=== PATIENT | female | born 1965 | race Hispanic/Latino ===

== ENCOUNTER 2016-04-20 14:22 | Emergency (ER) | payer SELFPAY ==
[2016-04-20 14:24] VITALS: BP 156/91; PULSE 94; RESP 24; O2SAT 100
--- NOTE | 2016-04-20 15:10 | ED.REPORT ---
HPI-Chest Pain 40 and Over Date of Service Apr 20, 2016 ED Provider: Dl Norman MD A 51 year old female with a history of pre-diabetes and hypertension presents to the ED with waxing and waning epigastric chest pain onset 1200 today. The pain was squeezing in nature, lasting until she arrived in the ED. The patient also reports dizziness, shortness of breath, and nausea. She had the flu one month ago but her associated symptoms have since resolved. Nursing Notes Stated Complaint: CHEST PAIN Chief Complaint: Chest Pain Nursing Notes Reviewed: Yes Allergies: Coded Allergies: aspirin (Verified Allergy, Mild, RASH, 04/20/16) General Time Seen by MD: 15:08 Chief Complaint Chest pain Hx Obtained From: Patient Arrived By: Walk-in Sudden in Onset?: Yes Onset Occurred: 5 - 8 hours ago Symptom Duration: Since onset Location: : Epigastric Quality: Painful Severity: Current: Moderate Severity: Maximum: Moderate Associated with: Reports: Dizziness, Nausea, Shortness of Breath, Denies: Fever Context Related History: Reports: Hypertension Recent Healthcare: No recent doctor visit Risk Factors HEART Score HEART for MACE: Mod index of susp (1), Normal ECG (0), Age 45 - 65 (1), 1-2 CAD risk factors (1), < or = to NL troponin (0) HEART for MACE Score: 0-3 (low risk 0.9%-1.7%) Past Medical History Past Medical History Hypertension Pre-Diabetes Past Surgical History None reported Family History Father of heart attack at age 70 Brother of heart attack age 52 Smoking History Never Smoker Social History Other Social History: Good social support, Ambulatory Status Independent Review of Systems Constitutional: Denies: Fever Respiratory: Reports: Shortness of breath, Denies: Non-productive cough GI: Reports: Nausea, Denies: Vomiting Neurologic: Reports: Dizziness Complete sys rev & neg: except as marked. Physical Exam Initial Vital Signs Vital Signs (First) Date Time Temp Pulse Resp B/P Pulse Ox O2 Delivery O2 Flow Rate FiO2 04/20/16 14:24 36.8 94 24 156/91 100 Room Air Initial VS: Reviewed Head / Eyes: Atraumatic, Normocephalic ENT: Conjunctiva normal, No scleral icterus Neck: Supple, Full range of motion Skin: Warm, Dry, No cyanosis Neurologic: Alert, Oriented, Nonfocal Psychiatric: Mood/affect normal, Behavior normal, Normal thought content General/Constitutional: Awake, Alert Respiratory / Chest: Breath sounds NL, Breath sounds = bilat, No respiratory distress Cardiovascular: Heart rate NL, Regular rhythm, Heart sounds NL Interpretation & Diagnostics Lab Results Interpretation Result Diagram: 04/20/16 1437 04/20/16 1437 Test 04/20/16 14:37 04/20/16 16:55 White Blood Count 9.8th/mm3 (3.8-10.1) Red Blood Count 4.22mil/mm3 (3.90-5.20) Hemoglobin 12.6g/dL (12.0-15.6) Hematocrit 37.5% (35.0-46.0) Mean Corpuscular Volume 88.9fL (81-100) Mean Corpuscular Hemoglobin 29.9pg (27.0-35.0) Mean Corpuscular Hemoglobin Concent 33.6% (32.0-37.0) Red Cell Distribution Width 13.0% (12.3-15.4) Platelet Count 333bil/L (150-400) Neutrophils (%) (Auto) 64.5% (40-74) Lymphocytes (%) (Auto) 23.3% (14-46) Monocytes (%) (Auto) 6.2% (4-12) Eosinophils (%) (Auto) 5.2% (0-5) Basophils (%) (Auto) 0.5% (0-3) Sodium Level 138mEq/L (134-144) Potassium Level 4.0mEq/L (3.5-5.2) Chloride Level 98mEq/L (97-108) Carbon Dioxide Level 26mmol/L (18-29) Blood Urea Nitrogen 17mg/dL (6-24) Creatinine 0.75mg/dL (0.57-1.00) Estimat Glomerular Filtration Rate 116mL/min (>59) Glucose Level 115mg/dL (60-99) Calcium Level 9.1mg/dL (8.5-10.1) Magnesium Level 1.9mg/dL (1.6-2.6) Total Bilirubin 0.4mg/dL (0.0-1.2) Aspartate Amino Transf (AST/SGOT) 62U/L (0-50) Alanine Aminotransferase (ALT/SGPT) 41U/L (0-32) Alkaline Phosphatase 108U/L (25-150) Total Protein 7.1g/dL (6.4-8.4) Albumin 4.5g/dL (3.4-5.0) Troponin T < 0.010ug/L (0.0-0.011) ECG Interpretation ECG Interpretation: Sinus rhythm rate 89 No STEMI Time: 14:37 Interpreted by: ED physician X-Ray Chest Interpretation Chest Xray Interpretation: IMPRESSION: No acute disease. Dictated by: Cali Romero M.D. on 04/20/2016 at 15:23 View: AP & lat Interpretation / Wet Read by: Interpret - Radiologist Re-Eval/Medical Decision Time of Eval: 17:43 Patient Status: Condition improved, Pain resolved Re-Evaluation/Progress Note: The patient is now pain free. Discussed with patient x-ray and lab results, diagnosis, and plan for discharge. Follow-up and return to the ER instructions given. Patient agrees with plan for care and all questions were addressed. Counseled Regarding: Diagnosis, Lab results, Need for follow-up, When/why to return to ED Discharge & Departure Primary Impression: Chest pain Chest pain type: unspecified Qualified Code: R07.9 - Chest pain, unspecified Disposition: Home Discharge Condition All VS Reviewed: Yes Condition: Stable Patient Instructions: Chest Pain (ED) Additional Instructions: Thank you for entrusting us with your care. No dangerous cause for your chest pain was identified today. Call your primary care provider tomorrow for a follow-up appointment this coming week. Return to the ER with any new or worsening symptoms, including recurrent chest pain. Take aspirin 325 mg daily until instructed otherwise. Google Translate Nish por confiar vallecillo cuidado. Ninguna causa peligrosa para vallecillo dolor de pecho fue identificada hoy. Llame a vallecillo proveedor de atencin primaria maana para savita mana de seguimiento la prxima semana. Regrese a la nathanael de emergencias con cualquier nuevo o empeoramiento de los s ntomas, incluyendo dolor torcico recurrente. [place] aspirina 325 mg al da hasta que se le indique lo contrario. Referrals: Kelechi Ladd MD (PCP) Scribe Attestation Portions of this note were transcribed by Cathy Alaniz. I, Dr. Norman, personally performed the history, physical exam, and medical decision-making; I reviewed and confirmed the accuracy of the information in the transcribed note. Signed by: Jatinder Karimi, 04/20/2016, 18:28 copies to: Kelechi Ladd MD, Kirk H MD Apr 20, 2016 15:10 CATHY ALANIZ Apr 20, 2016 16:26
--- NOTE | 2016-04-20 15:25 | DRSVH ---
PROCEDURE: X-RAY CHEST, TWO VIEWS ([id number]) INDICATIONS: CHEST PAIN TECHNIQUE: 2 views of the chest were acquired. COMPARISON: [facility], CR, CHEST 2VW, 10/24/2010, 10:52. FINDINGS: Surgical changes and devices: None. Lungs and pleura: No pleural effusions or pneumothorax. Lungs are clear. Diffuse/interstitial dias ges. Mediastinum: Mediastinal contours are normal. Heart size is normal. Bones and chest wall: No suspicious bony abnormalities. Soft tissues appear unremarkable. IMPRESSION: No acute disease. Dictated by: Cali Romero M.D. on 04/20/2016 at 15:23 Approved by: Cali Romero M.D. on 04/20/2016 at 15:23
[2016-04-20 15:27] LABS: BASOPHILS % (AUTO) 0.5 % (0-3); EOSINOPHILS % (AUTO) 5.2 % (0-5); MONOCYTES % (AUTO) 6.2 % (4-12); Mean Corpuscular Hemoglobin 29.9 pg (27.0-35.0); Mean Corpuscular Volume 88.9 fL (81-100); NEUTROPHILS % (AUTO) 64.5 % (40-74); Platelet Count 333 bil/L (150-400); TROPONIN T < 0.010 ug/L (0.0-0.011)
[2016-04-20 15:30] LABS: Magnesium 1.9 mg/dL (1.6-2.6)
[2016-04-20 18:07] VITALS: BP 129/84; PULSE 96; RESP 16; O2SAT 98
[2016-07-22] MEDS ORDERED: CHOL200025 PO (15:26)
== END 2016-04-20 18:10 | disposition home or self-care (01) ==
LOC: SED 14:22
DX: R07.9 Chest pain, unspecified (principal); R42 Dizziness and giddiness; R06.02 Shortness of breath; R11.0 Nausea; I10 Essential (primary) hypertension; Z88.8 Allergy status to other drugs, medicaments and biological substances

== ENCOUNTER 2016-05-29 10:08 | Emergency (ER) | payer SELFPAY ==
[~2016-05-29] VITALS: Ht 152.4 cm; Wt 82.3 kg
[2016-05-29 10:14] VITALS: BP 159/98; PULSE 91; RESP 15; O2SAT 88
[2016-05-29] MEDS ORDERED: Alum-Mag Hydrox-Simeth 30 mL Suspension ONE (10:18)
--- NOTE | 2016-05-29 10:19 | ED.REPORT ---
HPI-Chest Pain 40 and Over Date of Service May 29, 2016 ED Provider: Seng Harden MD Pt is a 51 y/o female w/ a hx of GERD, HTN, "pre-diabetes", presenting to the ED c/o epigastric abdominal pain with radiation to the back onset 03:00 this morning. She describes her pain as an intermittent burning sensation. She has had similar pain in the past 1 month ago and was seen here and was not started on any medications and does not know what she was diagnosed with (it was chest pain of unclear etiology, she was instructed to take Aspirin daily but states she is allergic). Her only medications are Omeprazole and Vitamin D. She takes her Omeprazole irregularly. She c/o associated nausea. Pt denies vomiting, CP, SOB, fever, chills. GI cocktail that was given prior to interview mildly relieved her pain. She has never had an abdominal surgery. Pain does not change with eating. Nursing Notes Stated Complaint: CHEST PAIN Chief Complaint: Chest Pain Nursing Notes Reviewed: Yes Allergies: Coded Allergies: aspirin (Verified Allergy, Mild, RASH, 04/20/16) Scheduled PRN Hydrocodone-Acetaminophen 5-325 mg (Hydrocodone-Acetaminophen 5-325 mg) 1 Each Tablet 1 TABLET PO Q4H PRN PRN For Pain General Time Seen by MD: 10:19 Chief Complaint Other (epig pain) Hx Obtained From: Patient Arrived By: Walk-in Sudden in Onset?: No Onset Occurred: 5 - 8 hours ago Symptom Duration: Intermittent Location: : Epigastric Quality: Burning, Painful Severity: Current: Moderate Severity: Maximum: Moderate Recent Healthcare: Previous diagnosis Similar Sx Previous: Yes Past Medical History Past Medical History Hypertension Pre-Diabetes GERD Past Surgical History None reported Family History Father of heart attack at age 70 Brother of heart attack age 52 Smoking History Never Smoker Social History Other Social History: Good social support, Ambulatory Status Independent Review of Systems Constitutional: Denies: Chills, Fever Respiratory: Denies: Non-productive cough, Shortness of breath Cardiovascular: Denies: Chest pain GI: Reports: Abdominal pain, Denies: Diarrhea, Nausea, Vomiting Complete sys rev & neg: except as marked. Physical Exam Initial Vital Signs Vital Signs (First) Date Time Temp Pulse Resp B/P Pulse Ox O2 Delivery O2 Flow Rate FiO2 05/29/16 10:14 36.9 91 15 159/98 88 Room Air Initial VS: Reviewed, Vital signs abnormal Head / Eyes: Atraumatic, Normocephalic, PERRL ENT: Mucous membranes moist, Conjunctiva normal, No scleral icterus Neck: Supple, Full range of motion Extremities: Vascular intact, Neuro intact, No swelling, No tenderness Skin: Warm, Dry, No cyanosis Neurologic: Alert, Oriented, Nonfocal Psychiatric: Mood/affect normal, Behavior normal, Normal thought content General/Constitutional: Awake, Alert, No acute distress, Cooperative, Not toxic appearing Appearance / Presentation: Positive: Uncomfortable Respiratory / Chest: Atraumatic, Breath sounds NL, Breath sounds = bilat, No respiratory distress, No rales, No rhonchi, No wheezing, No retractions, No stridor, No chest tenderness, No chest wall deformity, No crepitus Cardiovascular: Heart rate NL, Regular rhythm, Heart sounds NL, No gallop, No murmurs, No rubs, Cap refill not delayed, Peripheral circulation NL Abdomen: Atraumatic, Soft, No guarding, No rebound, No distention, No palpable mass Tenderness/Guarding/Rebound: Positive: Tender epigastric (mild), Negative: Tender LLQ..., Tender LUQ..., Tender RLQ..., Tender RUQ... Interpretation & Diagnostics Lab Results Interpretation Result Diagram: 05/29/16 1030 05/29/16 1030 Test 05/29/16 10:30 White Blood Count 11.2th/mm3 (3.8-10.1) Red Blood Count 4.35mil/mm3 (3.90-5.20) Hemoglobin 12.9g/dL (12.0-15.6) Hematocrit 38.4% (35.0-46.0) Mean Corpuscular Volume 88.3fL (81-100) Mean Corpuscular Hemoglobin 29.7pg (27.0-35.0) Mean Corpuscular Hemoglobin Concent 33.6% (32.0-37.0) Red Cell Distribution Width 13.2% (12.3-15.4) Platelet Count 365bil/L (150-400) Neutrophils (%) (Auto) 66.2% (40-74) Lymphocytes (%) (Auto) 17.5% (14-46) Monocytes (%) (Auto) 5.7% (4-12) Eosinophils (%) (Auto) 9.8% (0-5) Basophils (%) (Auto) 0.6% (0-3) Sodium Level 138mEq/L (134-144) Potassium Level 4.2mEq/L (3.5-5.2) Chloride Level 100mEq/L (97-108) Carbon Dioxide Level 23mmol/L (18-29) Blood Urea Nitrogen 12mg/dL (6-24) Creatinine 0.54mg/dL (0.57-1.00) Estimat Glomerular Filtration Rate 169mL/min (>59) Glucose Level 116mg/dL (60-99) Calcium Level 9.4mg/dL (8.5-10.1) Magnesium Level 1.8mg/dL (1.6-2.6) Total Bilirubin 0.3mg/dL (0.0-1.2) Aspartate Amino Transf (AST/SGOT) 36U/L (0-50) Alanine Aminotransferase (ALT/SGPT) 117U/L (0-32) Alkaline Phosphatase 156U/L (25-150) Troponin T < 0.010ug/L (0.0-0.011) Total Protein 7.3g/dL (6.4-8.4) Albumin 4.5g/dL (3.4-5.0) Lipase 24U/L (13-60) ECG Interpretation Time: 10:54 Interpreted by: ED physician Normal ECG Interpretation: Normal ECG w/ rate of... (79), Normal rate, Normal sinus rhythm, No acute ischemic changes, Normal QRS, Normal axis, Normal intervals, No change from prior ECGs, Adequate tracing X-Ray Chest Interpretation View: Portable, 1 view Interpretation / Wet Read by: Wet read ED physician NL X-Ray Chest Findings: No infiltrate, No acute disease US Focused Biliary Gallstones present, non-obstructing. No signs of cholecystitis. Exam Performed by: Allied health pract Exam Interpreted by: Allied health pract Re-Eval/Medical Decision Med Decision/Clinical Course Pt is a 51 y/o female w/ a hx of GERD, HTN, "pre-diabetes", presenting to the ED c/o epigastric abdominal pain with radiation to the back onset 03:00 this morning. She describes her pain as an intermittent burning sensation. She has had similar pain in the past 1 month ago and was seen here and was not started on any medications and does not know what she was diagnosed with (it was chest pain of unclear etiology, she was instructed to take Aspirin daily but states she is allergic). Her only medications are Omeprazole and Vitamin D. She takes her Omeprazole irregularly. She c/o associated nausea. Pt denies vomiting, CP, SOB, fever, chills. GI cocktail that was given prior to interview mildly relieved her pain. She has never had an abdominal surgery. Pain does not change with eating. Meds given: GI cocktail, Zofran, Dilaudid with good improvement in her symptoms. Labs notable as below: CBC: borderline leukocytosis of 11.1, otherwise unremarkable CMP: mildly elevated ALT and alk phosph otherwise unremarkable Troponin: negative RUQUS: Fatty infiltration within the liver. There are approximately 3 gallstones within the gallbladder lumen which are mobile and the largest measures up to 9 mm but there is no sign of acute cholecystitis or biliary obstruction. Overall presentation was consistent with GERD/gastritis. The patient is expressing suboptimal improvement with PPI as she is using this sporadically. She has been advised to start using her omeprazole 20 mg in the morning and 20 mg at night. Additional dietary modifications last lifestyle modifications were discussed. She is also been advised to avoid any NSAIDs. She will follow up with a surgeon regarding her gallstones though I see no evidence of ductal stone or cholecystitis at this time. She was provided with a limited supply of [place] for pain. Follow-up and return precautions were reviewed in detail and she was discharged in good condition. Time of Eval: 11:29 Re-Evaluation/Progress Note: Pt rechecked. Informed pt of plan for treatment. Pt understands and agrees with plan for treatment. F/U and RTER warnings given. All questions addressed. Counseled Regarding: Diagnosis, Lab results, Need for follow-up, When/why to return to ED Discharge & Departure Primary Impression: Acid reflux Esophagitis presence: without esophagitis Qualified Code: K21.9 - Gastro- esophageal reflux disease without esophagitis Additional Impressions: Cholelithiasis Cholelithiasis location: gallbladder Cholecystitis presence: without cholecystitis Biliary obstruction: without biliary obstruction Qualified Code : K80.20 - Calculus of gallbladder without cholecystitis without obstruction Epigastric pain Disposition: Home Discharge Condition All VS Reviewed: Yes Condition: Stable Patient Instructions: Cholelithiasis (GEN), Gastroesophageal Reflux Disease (ED ) Additional Instructions: Your symptoms are consistent with acid reflux. Your labs, EKG, and chest x-ray was normal indicating this is likely not related to your heart. Your ultrasound showed that you have gallstones. A GI and surgical referral has been given to you. You should call their numbers to be evaluated. Take your Omeprazole twice daily, one in the morning and one at night. Avoid fatty or greasy foods. Return to the emergency department if you experience severe or increased pain, persistent vomiting, profuse sweating, or for other concerning symptoms. Follow-up with your primary care doctor early next week. He should be able to help you set up follow-up appointments. Referrals: Kelechi Ladd MD (PCP) Naren Zamora MD, David B MD Scribe Attestation Portions of this note were transcribed by Chandrakant Nj. I, Dr. Harden personally performed the history, physical exam and medical decision-making; I reviewed and confirmed the accuracy of the information in the transcribed note. Signed by Jatinder Tran, 05/29/16 - 1130 copies to: Kelechi Ladd MD, Beck O MD May 29, 2016 10:19 [place] May 29, 2016 10:54
[2016-05-29 10:40] LABS: BASOPHILS % (AUTO) 0.6 % (0-3); EOSINOPHILS % (AUTO) 9.8 % (0-5); MONOCYTES % (AUTO) 5.7 % (4-12); Mean Corpuscular Hemoglobin 29.7 pg (27.0-35.0); Mean Corpuscular Volume 88.3 fL (81-100); NEUTROPHILS % (AUTO) 66.2 % (40-74); Platelet Count 365 bil/L (150-400)
[2016-05-29 10:55] VITALS: BP 140/70; PULSE 70; RESP 18; O2SAT 98
[2016-05-29 11:17] LABS: TROPONIN T < 0.010 ug/L (0.0-0.011)
[2016-05-29 11:25] LABS: Magnesium 1.8 mg/dL (1.6-2.6)
[2016-05-29 11:36] VITALS: BP 135/86; PULSE 75; RESP 17; O2SAT 98
[2016-05-29] MEDS ORDERED: Ondansetron 2 mg/mL 2 mL Inj IVPUSH ONE (11:45)
[2016-05-29] MEDS ORDERED: HYDROmorphone 1 mg/mL Inj IVPUSH ONE (11:45)
[2016-05-29] MEDS ORDERED: Pantoprazole 4 mg/mL 10 mL Inj ONE (12:05)
[2016-05-29] MEDS ORDERED: HYDR-4003 PO (13:16)
--- NOTE | 2016-05-29 13:21 | DRSVH ---
PROCEDURE: X-RAY CHEST ONE VIEW, PORTABLE ([id number]) INDICATIONS: CHEST PAIN TECHNIQUE: One view of the chest was acquired. COMPARISON: [facility], CR, XR CHEST 2VW, 04/20/2016, 15:08. [facility], CR, CHEST 1VW (PORTABLE), 04/15/2009, 23:32. FINDINGS: Surgical changes and devices: None. Lungs and pleura: No pleural effusions or pneumothorax. Lungs are clear. Mediastinum: Mediastinal contours appear normal. Heart size is normal. Bones and chest wall: No suspicious bony lesions. Overlying soft tissues appear unremarkable. IMPRESSION: No acute cardiopulmonary disease. Dictated by: [facility] Interpreted: Corrina Stafford MD on 05/29/2016 at 13:21 Transcribed by: WEST on 05/29/2016 at 13:21 Approved by: Corrina Stafford MD, PhD on 05/29/2016 at 16:50
--- NOTE | 2016-05-29 13:59 | DRSVH ---
PROCEDURE: US ABDOMEN ([id number]) INDICATIONS: ruq/epigastric pain, r/o biliary dz TECHNIQUE: Real-time scanning was performed of the abdominal and retroperitoneal organs, with image documentatio n. COMPARISON: None. FINDINGS: Liver: Liver is normal in size and homogeneous in echotexture, diffusely hyperechoic consistent with fatty infiltration. Gallbladder: Stones are present within the gallbladder lumen, the largest measures approximately 9 mm , and there is no gallbladder wall thickening or adjacent pericholecystic free fluid or focal tendern ess during sonographic palpation Biliary ducts: Intrahepatic bile ducts are non-dilated. Extrahepatic bile duct caliber measures 5.7 mm. Normal is 6-7 mm or less in diameter, or 10 mm or less post-cholecystectomy. Pancreas: Visualized portions of the pancreas are sonographically normal. Spleen: Spleen is normal in size and homogeneous in echotexture. The spleen contains a simple cyst measuring up to 1.6 x 1.6 x 1.8 cm Kidneys: Kidneys are normal in size and echotexture. Right kidney measures 11.0 cm long; left kidne y measures 10.3 cm long. No hydronephrosis or nephrolithiasis. No solid masses. Aorta: Visualized aorta is normal in caliber at less than 3 cm. Iliacs: Proximal common iliac arteries are normal in caliber at less than 2.5 cm. IVC: Intrahepatic inferior vena cava is patent. Miscellaneous: No free abdominal fluid. IMPRESSION: Fatty infiltration within the liver. There are approximately 3 gallstones within the gal lbladder lumen which are mobile and the largest measures up to 9 mm but there is no sign of acute cho lecystitis or biliary obstruction. Dictated by: Peyman Allan M.D. on 05/29/2016 at 13:55 Approved by: Peyman Allan M.D. on 05/29/2016 at 13:57
[2016-05-29 14:06] VITALS: BP 146/93; PULSE 78; RESP 16; O2SAT 98
[2016-07-22] MEDS ORDERED: CHOL200025 PO (15:26)
== END 2016-05-29 14:16 | disposition home or self-care (01) ==
LOC: SED 10:08
DX: K21.9 Gastro-esophageal reflux disease without esophagitis (principal); K80.20 Calculus of gallbladder without cholecystitis without obstruction; I10 Essential (primary) hypertension; Z88.8 Allergy status to other drugs, medicaments and biological substances
CPT/HCPCS: 36415; 71010; 76700; 80053; 83690; 83735; 84484; 85025; 93005; 96374; 96375; 99285; J1170; J2405

== ENCOUNTER 2016-05-31 20:43 | Emergency (ER) | payer SELFPAY ==
[~2016-05-31 20:43] MED LIST: HYDR-4003 PO
[2016-05-31 20:50] VITALS: BP 150/89; PULSE 93; RESP 28; O2SAT 95
--- NOTE | 2016-05-31 21:14 | ED.REPORT ---
HPI-Abd Pain F 40 and Over Date of Service May 31, 2016 ED Provider: Kobe Mansfield MD Patient is a 51 year old female with a history of hypertension, GERD, and known gallstones who presents to the ED complaining of severe epigastric abdominal that began this evening, present intermittently over the past 3 days. Patient states that the pain has increased in severity to the point that she is unable to sit up due to pain. The patient was seen in the ED on 05/29/2016 for this complaint, with a diagnosis of acid reflux. She was found to have mobile gallstones on ultrasound with no signs of cholecystitis. Patient states that her prescribed Vicodin and Omeprazole have not improved her symptoms. She reports associated nausea and vomiting 2x today. She denies a fever or chills. Nursing Notes Stated Complaint: ACID REFLUX Chief Complaint: Female Abdominal Pain Nursing Notes Reviewed: Yes Allergies: Coded Allergies: aspirin (Verified Allergy, Mild, RASH, 04/20/16) Scheduled PRN Hydrocodone-Acetaminophen 5-325 mg (Hydrocodone-Acetaminophen 5-325 mg) 1 Each Tablet 1 TABLET PO Q4H PRN PRN For Pain General Time Seen by MD: 21:10 Chief Complaint Abdominal pain Hx Obtained From: Patient, Claims Service Adjustor (Azeri) Arrived By: Walk-in Sudden in Onset?: No Onset Occurred: 3 days ago Symptom Duration: Since onset Progression since Onset: Gradually worsening Location: : Epigastric Quality: Painful Severity: Current: Severe Severity: Maximum: Severe Recent Healthcare: No recent hospitalization, Recent doctor visit Similar Sx Previous: Yes Past Medical History Past Medical History Hypertension Pre-Diabetes GERD gallstones Past Surgical History None reported Family History Father of heart attack at age 70 Brother of heart attack age 52 Smoking History Never Smoker Social History Other Social History: Good social support, , Local resident Ambulatory Status Independent Review of Systems Constitutional: Denies: Chills, Fever GI: Reports: Abdominal pain, Nausea, Vomiting Complete sys rev & neg: except as marked. Physical Exam Vital Signs Vital Signs (First) Date Time Temp Pulse Resp B/P Pulse Ox O2 Delivery O2 Flow Rate FiO2 05/31/16 20:50 36.6 93 28 150/89 95 Room Air Initial VS: Reviewed, Vital signs normal Head / Eyes: Atraumatic, Normocephalic, PERRL ENT: Conjunctiva normal, No scleral icterus Neck: Supple, Full range of motion Skin: Warm, Dry, No cyanosis Neurologic: Alert, Oriented, Nonfocal Psychiatric: Mood/affect normal, Behavior normal, Normal thought content General/Constitutional: Awake, Alert Distress / Hydration: Positive: Distress mild, Distress moderate Appearance / Presentation: Positive: Uncomfortable Respiratory / Chest: Breath sounds NL, Breath sounds = bilat, No respiratory distress, No rales, No rhonchi, No wheezing Cardiovascular: Heart rate NL, Regular rhythm, Heart sounds NL, No murmurs Abdomen: Soft Tenderness/Guarding/Rebound: Positive: Holman's sign positive, Tender RUQ... referred pain to the RUQ with palpation elsewhere Back: No midline vertebral tend, No CVA tenderness Interpretation & Diagnostics US ABDOMEN Impression: Cholelithiasis with no gallbladder wall thickening or pericholecystic fluid. Enlarged common bile duct measuring up to 9.5mm. Hepatomegaly with hepatic steatosis. Radiologist: Tacos Murcia MD 06/01/2016 - 12:01:58 AM PDT Lab Results Interpretation Result Diagram: 05/31/16 2105 05/31/16 210 Test 05/31/16 21:05 White Blood Count 9.6th/mm3 (3.8-10.1) Red Blood Count 4.30mil/mm3 (3.90-5.20) Hemoglobin 12.9g/dL (12.0-15.6) Hematocrit 37.8% (35.0-46.0) Mean Corpuscular Volume 87.9fL (81-100) Mean Corpuscular Hemoglobin 30.0pg (27.0-35.0) Mean Corpuscular Hemoglobin Concent 34.1% (32.0-37.0) Red Cell Distribution Width 13.2% (12.3-15.4) Platelet Count 393bil/L (150-400) Neutrophils (%) (Auto) 67.4% (40-74) Lymphocytes (%) (Auto) 19.5% (14-46) Monocytes (%) (Auto) 7.7% (4-12) Eosinophils (%) (Auto) 4.7% (0-5) Basophils (%) (Auto) 0.6% (0-3) Sodium Level 136mEq/L (134-144) Potassium Level 4.3mEq/L (3.5-5.2) Chloride Level 98mEq/L (97-108) Carbon Dioxide Level 23mmol/L (18-29) Blood Urea Nitrogen 13mg/dL (6-24) Creatinine 0.67mg/dL (0.57-1.00) Estimat Glomerular Filtration Rate 132mL/min (>59) Glucose Level 140mg/dL (60-99) Calcium Level 9.5mg/dL (8.5-10.1) Magnesium Level 2.0mg/dL (1.6-2.6) Total Bilirubin 1.3mg/dL (0.0-1.2) Aspartate Amino Transf (AST/SGOT) 392U/L (0-50) Alanine Aminotransferase (ALT/SGPT) 357U/L (0-32) Alkaline Phosphatase 268U/L (25-150) Troponin T 0.010ug/L (0.0-0.011) Total Protein 7.7g/dL (6.4-8.4) Albumin 4.4g/dL (3.4-5.0) Lipase 414U/L (13-60) Hold Vides Top Tube Received (Received) Lab Results Interpretation: Elevation of bilirubin and transaminases, elevation of lipase ECG Interpretation ECG Interpretation: Normal sinus rhythm, Rate 94 Time: 21:05 Interpreted by: ED physician Normal ECG Interpretation: No acute ischemic changes Re-Eval/Medical Decision Med Decision/Clinical Course 51-year-old female with known gallstones presents with increasing right upper quadrant abdominal pain. She is found to have a dramatic rise in her liver and pancreatic enzymes since her visit 2 days ago. Ultrasound shows, bile duct dilation but no obvious common bile duct stone. Surgery and GI were consulted. She needs an ERCP and that service is unavailable here over the weekend. Attempts were made to transfer her to [facility] in [place], but none of them have ERCP available either. Contact was made with [facility] hospitalist service and they will accept her. This patient's care is being turned over at change of shift to Dr. Loree Turner pending bed availability at [facility]. Source of Hx: Old records Re-Evaluation/Progress #1: Time of Eval: 22:00 Re-Evaluation/Progress Note: Rechecked the patient, who is now more comfortably following pain medication. Re-Evaluation/Progress #2: Time of Eval: 00:55 Re-Evaluation/Progress Note: Rechecked the patient to discuss the results of her ultrasound. Her pain is now resolved but she is drawbridge tender on examination. Will consult the surgeon for admission. Re-Evaluation/Progress #3: Time of Eval: 04:00 Re-Evaluation/Progress Note: Rechecked the patient, who was informed of the conversation with various specialists. She is unable to have an ERCP here, [place], or in [place]. She will need to be transferred to [facility] for this procedure. Consultation #1: Referral / Consult Name: Naren Zamora MD Consulted With: Surgeon Call Returned at: 01:32 Resistance Machine Welder Setter: Will see patient, Agrees with eval, Agrees with plan Note: Spoke with Dr. Zamora, surgeon, about the patient's case. He agrees to act as consult for possible hospital admission. She will need ERCP, consult GI. Consultation #2: Referral / Consult Name: Delfin Angel MD Consulted With: On-call physician (GI) Call Returned at: 01:34 Note: Spoke with NEETU Mir, about the patient's case. ERCP is not available this weekend and the patient will need to be transferred to another facility. Consultation #3: Consulted With: Hospitalist Call Returned at: 01:48 Note: Spoke with Dr. Samuel Mcrae, hospitalist at [facility] in [place]. He agrees to accept the patient for transfer. Request GI consult. Consultation #4: Consulted With: On-call physician (GI) Call Returned at: 02:02 Note: Spoke with Dr. Haddad, [facility], about the patient's case. Dr. Haddad also does not perform ERCPs. Consultation #5: Call Returned at: 02:22 Note: Spoke with the nursing highway maintenance supervisor at [facility]. There is no ERCP capability at their facility this weekend. [place] [facility] also does not have this capability. Consultation #6: Call Returned at: 03:41 Note: Spoke with NEETU Crandall at [facility], about the patient's case. ERCP is available at their facility and he accepts the patient for transfer. [facility] will arrange for transfer of the patient and call back. Consultation #7: Call Returned at: 06:00 Note: Spoke to [facility] transfer center again. They do not yet have a bed placement available, will probably be after change of shift. Counseled Regarding: Diagnosis, Lab results, Need for transfer Discharge & Departure Primary Impression: Bile duct stone Cholecystitis presence: without cholecystitis Biliary obstruction: with biliary obstruction Qualified Code: K80.51 - Calculus of bile duct without cholangitis or cholecystitis with obstruction Additional Impressions: Elevated lipase Elevated transaminase level Elevated bilirubin Disposition: Transfer, Acute Care Facility Receiving Hospital: [facility] Transfer Accepted: Yes Transfer Accepted at: 03:41 Transfer Reason: Higher level of care (ERCP) Spoke with: Specialty physician (Dr. Adames) Patient Status: Stable Patient Informed: Yes Discharge Condition All VS Reviewed: Yes Condition: Stable Referrals: Kelechi Ladd MD (PCP) Scribe Attestation Portions of this note were transcribed by Tamar Gaytan. I, Dr. Mansfield personally performed the history, physical exam and medical decision-making; I reviewed and confirmed the accuracy of the information in the transcribed note. Signed by: Jatinder Porter, 06/01/2016 0616 copies to: Kelechi Ladd MD, Howard L MD May 31, 2016 21:14 Tamar Gaytan May 31, 2016 21:22
[2016-05-31 21:16] LABS: BASOPHILS % (AUTO) 0.6 % (0-3); EOSINOPHILS % (AUTO) 4.7 % (0-5); MONOCYTES % (AUTO) 7.7 % (4-12); Mean Corpuscular Volume 87.9 fL (81-100); NEUTROPHILS % (AUTO) 67.4 % (40-74); Platelet Count 393 bil/L (150-400)
[2016-05-31] MEDS ORDERED: 0.9% Sodium Chloride 1,000 ML IV ONE (21:18)
[2016-05-31 21:37] LABS: TROPONIN T 0.01 ug/L (0.0-0.011)
[2016-05-31] MEDS: HYDROmorphone 0.5 mg/0.5 mL iSecure Syringe IVPUSH PRN ×2 (21:37→22:41)
[2016-05-31] MEDS: Ondansetron 2 mg/mL 2 mL Inj IVPUSH PRN (21:38)
[2016-05-31] MEDS ORDERED: Pantoprazole 4 mg/mL 10 mL Inj IVPUSH ONE (21:40)
[2016-06-01 02:42] VITALS: BP 116/62; PULSE 86; RESP 18; O2SAT 97
[2016-06-01 06:24] VITALS: BP 120/68; PULSE 80; RESP 16; O2SAT 98
[2016-06-01 07:46] VITALS: BP 155/87; PULSE 89; RESP 16; O2SAT 100
[2016-06-01] MEDS: Ondansetron 2 mg/mL 2 mL Inj IVPUSH PRN (07:48)
[2016-06-01] MEDS: HYDROmorphone 0.5 mg/0.5 mL iSecure Syringe IVPUSH PRN ×2 (07:51→08:30)
--- NOTE | 2016-06-01 08:25 | DRSVH ---
PROCEDURE: US ABDOMEN ([id number]) INDICATIONS: increasing abd pain, elev AST/ALT, known stones TECHNIQUE: Real-time scanning was performed of the abdominal and retroperitoneal organs, with image documentatio n. COMPARISON: None. FINDINGS: Liver: Liver is normal in size and homogeneous in echotexture. Gallbladder: Demonstrate multiple calculi within its lumen. No gallbladder wall thickening. Biliary ducts: Intrahepatic bile ducts are non-dilated. Extrahepatic bile duct caliber measures 9.5 mm. Normal is 6-7 mm or less in diameter, or 10 mm or less post-cholecystectomy. Pancreas: Visualized portions of the pancreas are sonographically normal. Pancreatic tail not well seen. Spleen: Spleen is normal in size. 19 mm complex cystic focus within the spleen is unchanged. Kidneys: Kidneys are normal in size and echotexture. Right kidney measures 11.6 cm long; left kidne y measures 10.4 cm long. No hydronephrosis or nephrolithiasis. No solid masses. Aorta: Visualized aorta is normal in caliber at less than 3 cm. Iliacs: Proximal common iliac arteries are normal in caliber at less than 2.5 cm. IVC: Intrahepatic inferior vena cava is patent. Miscellaneous: No free abdominal fluid. IMPRESSION: 1. Cholelithiasis. No evidence of cholecystitis. 2. No change in complex cystic focus within the spleen. 3. Mild distention of the common bile duct, which could be further assessed with MRCP or ERCP, if cli nically indicated. 4. Concordant with preliminary interpretation. Dictated by: Jacob Guerra M.D. on 06/01/2016 at 8:21 Approved by: Jacob Guerra M.D. on 06/01/2016 at 8:23
[2016-06-01 08:33] VITALS: BP 155/87; PULSE 89; RESP 16; O2SAT 100
[2016-07-22] MEDS ORDERED: CHOL200025 PO (15:26)
== END 2016-06-01 08:29 | disposition short-term general hospital (02) ==
LOC: SED 20:43
DX: K80.51 Calculus of bile duct without cholangitis or cholecystitis with obstruction (principal); R74.8 Abnormal levels of other serum enzymes; R74.0 Nonspecific elevation of levels of transaminase and lactic acid dehydrogenase [LDH]; E80.7 Disorder of bilirubin metabolism, unspecified; I10 Essential (primary) hypertension; K21.9 Gastro-esophageal reflux disease without esophagitis; Z88.6 Allergy status to analgesic agent
CPT/HCPCS: 36415; 76700; 80053; 83690; 83735; 84484; 85025; 93005; 96361; 96374; 96375; 96376; 99285; J1170; J2405; J7030

== ENCOUNTER 2016-07-23 01:32 | Day surgery (SDC) | payer SELFPAY ==
[~2016-07-23] VITALS: Ht 170.2 cm; Wt 81.0 kg
[2016-07-23] VITALS (11 sets, daily range): BP systolic 110–130; BP diastolic 69–83; PULSE 66–81; RESP 14–21; O2SAT 97–100
[~2016-07-23 01:32] MED LIST changes: +CHOL200025 PO
[2016-07-23] MEDS ORDERED: MetoCLOpramide 5 mg/mL 2 mL Inj ONE (01:33)
[2016-07-23] MEDS ORDERED: Propofol 10,000 mCg/mL 20 mL Inj ONE (01:33)
[2016-07-23] MEDS ORDERED: Glycopyrrolate 0.2 MG/ML 1mL Inj ONE (01:33)
[2016-07-23] MEDS ORDERED: fentaNYL-PF 50 mCg/mL 2 mL Inj ONE (01:33)
[2016-07-23] MEDS ORDERED: Dexamethasone 4 mg/mL Inj ONE (01:33)
[2016-07-23] MEDS ORDERED: Neostigmine 1 mg/mL 10 mL Inj ONE (01:33)
[2016-07-23] MEDS ORDERED: Rocuronium 10 mg/mL 5 mL Inj ONE (01:33)
[2016-07-23] MEDS ORDERED: Ondansetron 2 mg/mL 2 mL Inj ONE (01:33)
[2016-07-23] MEDS: Lactated Ringer's 1,000 ML IV ONE ×2 (12:58→13:07)
[2016-07-23] MEDS ORDERED: Lactated Ringer's 1,000 ML IV SCH (13:20)
[2016-07-23] MEDS ORDERED: MetoCLOpramide 5 mg/mL 2 mL Inj IVPUSH PRN (13:20)
[2016-07-23] MEDS ORDERED: Dexamethasone 4 mg/mL Inj IVPUSH PRN (13:20)
[2016-07-23] MEDS ORDERED: Lactated Ringer's 500 ML IV PRN (13:20)
[2016-07-23] MEDS ORDERED: Phenylephrine 10,000 mCg/mL Inj IVPUSH PRN (13:20)
[2016-07-23] MEDS ORDERED: Ondansetron 2 mg/mL 2 mL Inj IVPUSH PRN (13:20)
[2016-07-23] MEDS ORDERED: HYDROmorphone 1 mg/mL Inj IVPUSH PRN (13:20)
[2016-07-23] MEDS ORDERED: EPHEDrine Sulfate 50 mg/mL Inj IVPUSH PRN (13:20)
[2016-07-23] MEDS ORDERED: fentaNYL-PF 50 mCg/mL 2 mL Inj IVPUSH PRN (13:20)
--- NOTE | 2016-07-23 13:22 | PCM.HPANE ---
Patient Data Date of Service: July 23, 2016 (5720) Surgeon Admitting Provider: Attending Provider:Tabitha Zelaya MD Primary Care Physician:Kelechi Ladd MD Other Provider:Brenda Leyva Anesthesia Reason for Visit History Of Biliary Duct Stent Placement Ht/WT & BMI Height (Feet): 5 Height (Inches): 7 Weight (Kilograms): 81 Body Mass Index 28.00 Allergies Coded Allergies: aspirin (Verified Allergy, Mild, RASH, 04/20/16) Past Anesthesia History Anesthesia History: Denies:: Abnormal Airway, Anesthesia Reactions, Difficult Intubation, Fam Anesthesia Reaction, Fam Malignant Hypertherm, Malignant Hyperthermia Diabetes History Hx Diabetes?: No MRSA MRSA: No Medications Active Scripts Hydrocodone-Acetaminophen 5-325 mg 1 Each Tablet1 Tablet PO Q4H PRN For Pain # 20 TABLET Prov:Seng Harden MD 05/29/16 Reported Medications Cholecalciferol (Vitamin D3) (Vitamin D3)2,000 Unit Tablet2,000 Unit PO DAILY 07/22/16 History History of ENT Problems?: No HEENT History: Denies:: Abnormal Airway Difficult Intubation Dysphagia Hearing Problem Denture Type: None Teeth Condition: Within Normal Limits Hx of Heart Problems?: No Cardiovascular History: Denies:: AICD Hypertension Pacemaker Valvular Heart Disease Hx of Respiratory Problem?: No Respiratory History: Denies:: Tuberculosis Hx Neurologic Problems?: No Neurological History: Denies:: CVA Hx of GI Problems?: Yes Hx of Problems?: No Female Hx: Denies:: Currently (IREGULAR, WISHES TO SIGN WAIVER, DECLINES TEST) Hx Musculoskeletal Problems?: No Musculoskeletal History: Denies:: Fibromyalgia Joint Replacement Psycho Social History: Positive for:: Anxiety (SITUATIONAL) Hx Depression Hx Surgeries?: Yes (DENTAL, GALLBLADDER) Hx Any Other Health Problems?: Yes Hx Diabetes: No Hx Alcohol Use: NoHx Substance Use: No Smoking Status: Never Smoker Stop/Bang Treated for Sleep Apnea?: No Do You Have a CPAP Machine?: No S-Snoring: Do You Snore Loudly: Yes T-Tired: feel tired, fatigued: Yes O-Obsered: Observed not breath: No P-Blood Pressure: treated: No B- Body Mass Index > 35 kg/m2: No A- Age over 50: Yes N- Neck Large Circumference: No G- Gender Male: No TRENT Total Score: 3 TRENT Category 2: Yes Risk Assessment Category Category 1A: Patient has history of documented sleep apnea, and HAS NOT received any narcotic, sedative or anesthesia administration during this stay. Category 1B: Patient has history of documented sleep apnea, and HAS received any narcotic , sedative or anesthesia administration during this stay Category 2: Patient has SUSPECTED Obstructive Sleep Apnea, and HAS received any narcotic , sedative or anesthesia administration during this stay. Category 3: Patient has SUSPECTED Obstructive Sleep Apnea and HAS NOT received narcotic, sedative or anesthesia administration during this stay. Category 4: Outpatient in Procedural Areas with known sleep apnea or who screen positive for High Risk via the STOP/BANG questionnaire. Exam Exam Vital Signs Vital Signs Date Time Temp Pulse Resp B/P Pulse Ox O2 Delivery O2 Flow Rate FiO2 07/23/16 13:15 36.5 80 21 127/76 100 Simple Mask 8 07/23/16 11:44 36.8 80 16 119/77 98 Room Air General Appearance: Alert, Oriented X3, Cooperative, No Acute Distress HEENT/AIRWAY: MP 3 Lungs: Clear to Auscultation Heart: Exam Unremarkable Meds/Labs/Diagnostics Admission Meds Current Medications Lactated Ringer's (Lr) 1,000 ml @ 10 mls/hr Q24H ONCE IV Last administered on 07/23/16t 13:07; Start 07/23/16 at 06:00; Stop 07/24/16 at 05:59 Plan Impression Patient chart reviewed, patient interviewed and anesthestic plan with risks, benefits, and alternatives discussed, and informed consent obtained. ASA Physical Status: ASA1 Normal Healthy Anesthetic Plan: GA Bene/Risks/Altern/Consents: Yes HP Complete Prior to Induction: Yes Titus Trotter MD July 23, 2016 13:22
--- NOTE | 2016-07-23 13:24 | PCM.ANEP1 ---
Post Anesthesia Phase 1 PACU Phase 1 Assessment Date of Service: July 23, 2016 (1130) Vital Signs Vital Signs Date Time Temp Pulse Resp B/P Pulse Ox O2 Delivery O2 Flow Rate FiO2 07/23/16 13:15 36.5 80 21 127/76 100 Simple Mask 8 07/23/16 11:44 36.8 80 16 119/77 98 Room Air Anesthetic Administered: GA Level of Alertness: Sleepy, easy to arouse TERRELL's with Equal Strength: Yes Pain: No Nausea or Vomiting: No Oxygen Delivery: Simple Mask Lungs: Clear to Auscultation Dermatome Level: Full Sensation Complications: No Titus Trotter MD July 23, 2016 13:23
--- NOTE | 2016-07-23 23:13 | ENDO ---
[address] [address] ENDOSCOPY PROCEDURE PATIENT: BELLA YADAV : 1965 MR#: [id number] ADMIT: 07/23/2016 JOB ID: [id number] PROCEDURE PERFORMED: Endoscopic retrograde cholangiopancreatography. INDICATIONS: The patient is a 51-year-old woman, who initially presented to [facility] back in May with abdominal pain. Imaging suggested biliary dilation, and with associated abnormal LFTs, it was suspected that she may have common bile duct stones. ERCP service was not available at that time; therefore, patient was transferred to [facility] where she underwent an ERCP which revealed evidence of separate of cholangitis and choledocholithiasis. She had multiple stones removed as well as a biliary stent placed. She also had a pancreatic duct stent placed as well. The feather maker who performed her initial ERCP, requested that the patient follow up with me for repeat ERCP for stent removal. The patient has some occasional right upper quadrant pain but denies any nausea, vomiting, chills, or sweats. Please see anesthesia note for details regarding ASA classification, Mallampati score, and a details regarding general anesthesia. INSTRUMENT USED: [id number]. PROCEDURE DETAILS: After informed consent was obtained, the patient was brought into the GI suite, where she was placed under general anesthesia and into the standard ERCP position. A bite block was then placed, and the standard ERCP scope was then advanced without difficulty to the 2nd portion of the duodenum. Initial product analyst films demonstrated the biliary stent to be in place, and clips were seen at the expected site from her previous gallbladder surgery. A biliary stent was seen. The stent was then removed using a standard snare. Then following that, there was evidence of a prior sphincterotomy. Using a [employer] Autotome, selective biliary cannulation was achieved. Initial cholangiogram demonstrated a dilated common bile duct measuring approximately 12 mm, and there was what appeared to be filling defects in the irregular fashion in the distal CBD suggestive of retained common bile duct stones. The intrahepatic sealed and appeared unremarkable. Next, using a 12 mm inject from below balloon, balloon sweep was performed which extruded a small stone as well as large amounts of sludge. Four sweeps were performed in total. Final cholangiogram demonstrated a 12 mm common bile duct without any further filling defects. IMPRESSION: Endoscopic retrograde cholangiopancreatography status post biliary stent removal and balloon sweep with extrusion of small stone and sludge. RECOMMENDATIONS: Follow up in GI clinic as needed. COMPLICATIONS: None. ESTIMATED BLOOD LOSS: Less than 5 mL. MTDD
== END 2016-07-23 23:59 | disposition home or self-care (01) ==
LOC: END 01:32
PROVIDERS: ATTEND Internal Medicine Gastroenterology
DX: K80.30 Calculus of bile duct with cholangitis, unspecified, without obstruction (principal); R10.13 Epigastric pain; F41.8 Other specified anxiety disorders; Z98.890 Other specified postprocedural states; Z96.89 Presence of other specified functional implants
CPT/HCPCS: 43264; 43275; 74328; J1100; J2405; J2710; J2765; J3010; J7120; Q9967